=== PATIENT | female | born 1960 | race African-American/Black ===

== ENCOUNTER 2019-04-19 22:22 | Inpatient (IN) | payer BC ==
[~2019-04-19] VITALS: Ht 157.5 cm; Wt 99.6 kg
[2019-04-19 22:26] VITALS: BP 184/99
[2019-04-19 23:35] LABS: ABSOLUTE NEUTROPHILS 5.5 thou/uL (1.4-8.2); BASOPHILS 1.1 % (0.0-2.0); EOSINOPHILS 0.6 % (0.0-3.0); HEMATOCRIT 36.8 % (37.0-47.0); HEMOGLOBIN 11.6 gm/dL (12.0-15.0); LYMPHOCYTES 31.7 % (24.0-44.0); MCHC 31.7 g/dL (28.0-37.0); MCV 82.1 fL (80.0-100.0); MONOCYTES 7.6 % (1.0-8.0); PLATELET COUNT 218 thou/uL (150-400); RBC 4.48 mil/uL (4.20-5.00); RDW 13.2 % (10.5-14.5); WBC 9.3 thou/uL (4.0-11.0)
[2019-04-19 23:45] LABS: ANION GAP 9 mmol/L (7-16); BUN 16 mg/dL (7-18); CALCIUM 8.8 mg/dL (8.5-10.1); CHLORIDE 105 mmol/L (98-107); CO2 27 mmol/L (21-32); CREATININE 0.8 mg/dL (0.6-1.0); GLUCOSE 186 mg/dL (74-106); SODIUM 141 mmol/L (136-145)
[2019-04-19 23:55] LABS: ALBUMIN 3.4 g/dL (3.4-5.0); SGOT 19 U/L (15-37); SGPT 25 U/L (30-65); TOTAL BILIRUBIN 0.2 mg/dL (<0.1-1.0); TOTAL PROTEIN 6.8 g/dL (6.4-8.2); TROPONIN-I <0.06 ng/mL (<0.06)
[2019-04-20 01:33] VITALS: BP 163/76
[2019-04-20] MEDS ORDERED: PANTOPRAZOLE SO40 M1 PO (02:26)
[2019-04-20] MEDS ORDERED: ADVIL200 M3 PO (02:27)
[2019-04-20] MEDS ORDERED: MAPAP325 MG PO (02:28)
[2019-04-20] MEDS ORDERED: LISINOPRIL2.5 MG PO (02:29)
[2019-04-20] MEDS ORDERED: GLIMEPIRIDE1 MG PO (02:29)
[2019-04-20] MEDS ORDERED: LIPITOR10 MG PO (02:30)
[2019-04-20] MEDS ORDERED: GLUCOPHAGE PO (02:31)
[2019-04-20 05:42] LABS: CHOLESTEROL 176 mg/dL (<200); HDL CHOLESTEROL 43 mg/dL (>40); LDL CHOLESTEROL 116 mg/dL (<100); TC:HDL 4.1 Ratio (Not establshd); TRIGLYCERIDE 88 mg/dL (<150); VLDL 18 mg/dL (<40)
[2019-04-20 05:44] LABS: SERUM ASSESSMENT Clear
[2019-04-20 07:30] VITALS: BP 155/73
[2019-04-20 16:40] VITALS: BP 159/77
[2019-04-20 20:21] VITALS: BP 164/82
[2019-04-21 03:10] LABS: GLYCOHEMOGLOBIN (HGB A1C) 10.1 % (4.8-5.6)
[2019-04-21 05:27] VITALS: BP 165/80
[2019-04-21 07:15] VITALS: BP 144/76
--- NOTE | 2019-04-21 07:37 | HC ---
[facility] [place] [address] CONSULTATION Name: LAURIE TAVERAS Room #: 200-I ADM IN M.R.#: [id number] Admission: 04/20/19 Attend Phys: Daryl Quiros MD Discharge: Date of : 62 Report #: [id number] THIS REPORT FOR: cc: Jesu Rodrigez K. Steven DO Park, Jin S. MD ~ CC: Jesu Quiros DATE OF SERVICE: 04/20/2019 CARDIOLOGY CONSULTATION INDICATION: Chest pain. HISTORY OF PRESENT ILLNESS: This is a 58-year-old female with a history of diabetes mellitus, hypertension, hyperlipidemia presenting with chest discomfort for the past several days. She described a sharp pain on the left side of her chest, radiating from the left shoulder, left back and down in the left arm. It seems to occur at rest or when she is lying down. It is not related to physical exertion. It resolved within 2 minutes. It is not associated with any shortness of breath or diaphoresis. She reports no alleviating or aggravating factors. She does report being under a lot of stress lately. There is no history of fever, PND or orthopnea. PAST MEDICAL HISTORY: Diabetes mellitus, hypertension, hypercholesterolemia. ALLERGIES: None. MEDICATIONS: At home include Protonix once a day, lisinopril 2.5, glimepiride, atorvastatin 10 mg and Glucophage 500 mg daily. SOCIAL HISTORY: Denies tobacco use. FAMILY HISTORY: Positive for CAD. REVIEW OF SYSTEMS: A full 10-point review of systems performed. Only the pertinent positives and negatives are described in the HPI. PHYSICAL EXAMINATION: VITAL SIGNS: Blood pressure is 150/60, heart rate is 70 beats per minute. GENERAL APPEARANCE: A mildly overweight female, in no acute distress. HEENT: Normocephalic, atraumatic, oral mucosa moist. NECK: Supple. LUNGS: Clear to auscultation. CARDIAC: Regular rate and rhythm, S1, S2 positive. [facility] [address] [place] [address] CONSULTATION Name: SHANKAR TAVERASNDA Room #: 200-I ADM IN .R.#: [id number] Admission: 04/20/19 Attend Phys: Daryl Quiros MD Discharge: Date of : 62 Report #: [id number] ABDOMEN: Soft, nontender. EXTREMITIES: No cyanosis, no edema. NEUROLOGIC: Alert and oriented. ECG reveals sinus rhythm, otherwise within normal limits. LABORATORY VALUES: Troponin is negative x 3. White count is 9.3, hemoglobin 11.6, creatinine is 0.8. ASSESSMENT AND PLAN: 1. Chest pain syndrome, her symptoms may be suggestive of a neuropathy. It has no correlation with exertion. However, she does have significant risk factors and the plan is to proceed with noninvasive stress testing. 2. Hypertension, elevated blood pressure, increase the dose of lisinopril. 3. Diabetes mellitus, continue with her regimen. 4. Hypercholesterolemia, continue with statin therapy. <ELECTRONICALLY SIGNED> By: Geoffrey Alarcon MD 04/21/19 0737 1035 1049 Geoffrey Alarcon MD /nt
[2019-04-21 11:05] VITALS: BP 155/68
[2019-04-21 15:20] VITALS: BP 145/78
[2019-04-21 17:07] LABS: HEMOGLOBIN 12.5 gm/dL (12.0-15.0); MCH 25.9 pg (26.0-34.0); RBC 4.82 mil/uL (4.20-5.00); RDW 13.2 % (10.5-14.5)
[2019-04-21 17:18] LABS: PROTIME 10.1 Seconds (9.3-11.4)
[2019-04-21 20:20] VITALS: BP 153/89
[2019-04-22 00:36] VITALS: BP 138/67
[2019-04-22 05:20] LABS: HEMATOCRIT 39.4 % (37.0-47.0); HEMOGLOBIN 12.2 gm/dL (12.0-15.0); MCH 25.6 pg (26.0-34.0); MCV 82.5 fL (80.0-100.0); RBC 4.78 mil/uL (4.20-5.00); RDW 13.3 % (10.5-14.5); WBC 9.6 thou/uL (4.0-11.0)
[2019-04-22 05:21] VITALS: BP 155/86
[2019-04-22 05:29] LABS: CALCIUM 9.3 mg/dL (8.5-10.1); CREATININE 0.8 mg/dL (0.6-1.0); POTASSIUM 4.1 mmol/L (3.5-5.1)
[2019-04-22 07:30] VITALS: BP 144/82
[2019-04-22 11:48] VITALS: BP 142/69
--- NOTE | 2019-04-22 17:38 | CATHLAB ---
[facility] Renate [place] [address] INVASIVE PROCEDURE REPORT Name: LAURIE TAVERAS Room #: 209-P ADM IN M.R.#: [id number] Admission: 04/20/19 Attend Phys: Joseyeison Iftikhar Floyd Discharge: Date of : 62 Report #: [id number] THIS REPORT FOR: cc: Jesu Rodrigez K. Steven DO Park, Jin S. MD ~ APPROVED REPORT Study performed: 04/22/2019 10:11:56 Patient Details Patient Status: In-Patient Room #: The patient is a 58 year-old female Event Personnel Geoffrey Alarcon Door Patcher, Wilver Brandt RN, Karen Diaz RTR Damon Toure Sherra RTKyung Monitor Procedures Performed Art Access - R femoral artery* Left Heart Cath w/or w/o Coronaries 3824519 [facility] 54031 Initial Mod Sed Same Phys/QHP Gr 521294 91365 Mod Sed Same Phys/QHP Ea 167719 Hemostasis with Manual pressure Indication Non-STEMI , Dyspnea, Positive stress test, Chest pain Risk Factors Hypercholesterolemia, Hypertension, Diabetes Procedure Narrative The Right Groin^ was infiltrated with 1% Lidocaine subcutaneous anesthesia. A PINNACLE 4FR Sheath #[id number] sheath was inserted into the RFA^. Coronary angiography was performed using coronary diagnostic catheters. The right coronary system was accessed and visualized with a JR4 catheter. The left coronary system was accessed and visualized with a JL4 catheter. The left ventricle was accessed and visualized with a PIGTAIL catheter. Left ventriculogram was performed in 30 degree projection. Hemostasis was obtained with manual pressure following sheath removal without any complications. The patient tolerated the procedure well and there were no complications associated with the procedure. There was no hematoma. [facility] [address] [place] [address] INVASIVE PROCEDURE REPORT Name: LAURIE TAVERAS Room #: 209-P [facility] IN ..#: [id number] Admission: 04/20/19 Attend Phys: Orion Baltazar Discharge: Date of : 62 Report #: [id number] Intraoperative Conscious Sedation Sedation start time: 1039 Case end Time: 1117 Fentanyl 50 mcg Versed 1.5 mg Fluoro Time: 4.00 minutes Dose: DAP 6353.00 cGycm2 1692 mGy Contrast Type and Amount: Omnipaque 110 ml Coronary Angiography The patient's coronary anatomy is right dominant. Diagnostic Cath Left Main The left main artery is a patent vessel, with no flow-limiting lesions. LAD There is a severe stenosis at the ostium, 70%. The remaining segments of the mid and distal LAD are patent with no flow-limiting lesions. Diagonal 1 There is a severe occlusion in the proximal segment, 70%. Circumflex There is a severe occlusion in the mid segment of the left circumflex artery with JHOANA 2 blood flow. OM1 This has a high takeoff from the left circumflex artery, patent with no flow-limiting lesions. OM2 This is a patent vessel, with no flow-limiting lesions. Right Coronary The RCA is a dominant vessel, with no flow-limiting lesions. R PDA This is a small to moderate size caliber vessel with a total occlusion in the proximal segment. RPLV This is a small-caliber vessel, patent with no flow-limiting lesions. Left Ventriculography The left ventricle is normal in size with normal contractility. The left ventricular ejection fraction is estimated to be 60%. There is focal hypokinesis of the mid inferior wall. Hemodynamics The aortic pressure is 146/85 mmHg with a mean of 114 mmHg. The left ventricular pressure is 173/7 mmHg with a mean of mmHg. The left ventricular end diastolic pressure is 12 mmHg. There was no gradient across the aortic valve upon pullback. Pullback from the left ventricle to the aorta revealed no gradient across the aortic valve. Conclusion [facility] [address] [place] [address] INVASIVE PROCEDURE REPORT Name: LAURIE TAVERAS Room #: 209-P [facility] IN M.R.#: [id number] Admission: 04/20/19 Attend Phys: Orion Baltazar Discharge: Date of : 62 Report #: [id number] 1. Severe multivessel disease. 2. Normal LV systolic function with focal hypokinesis of the mid inferior wall. 3. Recommend CV surgical consultation. <ELECTRONICALLY SIGNED> By: Geoffrey Alarcon MD 04/22/19 173 36 36 Geoffrey Alarcon MD /INF
--- NOTE | 2019-04-22 17:41 | CATHLAB ---
[facility] [place] [address] INVASIVE PROCEDURE REPORT Name: LAURIE TAVERAS Room #: 209-P ADM IN M.R.#: [id number] Admission: 04/20/19 Attend Phys: Orion Buitrago Yola Discharge: Date of : 62 Report #: [id number] THIS REPORT FOR: cc: Jesu Rodrigez K. Steven DO Park, Jin S. MD ~ APPROVED REPORT Study performed: 04/22/2019 12:36:31 Patient Details The patient is a 58 year-old female Event Personnel Geoffrey Alarcon Automation Analyst, Wilver Brandt RN, Emeli Jose RTKyung Monitor, Jesse Villarreal Monitor Procedures Performed Art Access - L femoral artery* BRITTANY Place w/wo Plasty Single CIRC 378720 35600 Initial Mod Sed Same Phys/QHP Gr5y 950084 11156 Mod Sed Same Phys/QHP Ea 547926 Hemostasis w/ Mynx Indication Unstable angina , Chest pain, After undergoing a diagnostic cardiac catheterization, the patient was resting in the CCU. The initial plan was to undergo consultation for CABG. The patient developed acute onset of severe, crushing substernal chest discomfort. The patient was taken back to the cardiac catheterization lab, found to have an acute infarct with total occlusion of the mid left circumflex artery stenosis. Risk Factors Hypercholesterolemia, Hypertension, Diabetes Procedure Narrative The Left Groin^ was infiltrated with 1% Lidocaine subcutaneous anesthesia. A PINNACLE 6FR Sheath #[id number] sheath was inserted into the LFA^. Coronary angiography was performed using coronary diagnostic catheters. Pre-demployment femoral angiogram was performed . Closure device was deployed with a 6 Fr MYNXGRIP 6/7F #[id number]. The patient tolerated the procedure well and there were no complications associated with the procedure. There was no hematoma. Intraoperative Conscious Sedation [address] [address] INVASIVE PROCEDURE REPORT Name: NITINLAURIE Room #: 209-P [facility] IN M.R.#: [id number] Admission: 04/20/19 Attend Phys: Orion Baltazar Discharge: Date of : 62 Report #: [id number] Sedation start time: 1242 Case end Time: 1309 Fentanyl 50 mcg Versed 1 mg Fluoro Time: 7.00 minutes Dose: DAP 6340.00 cGycm2 1662 mGy Contrast Type and Amount: Omnipaque 120 ml Hemodynamics The aortic pressure is 155/77 mmHg with a mean of 111 mmHg. PCI Technique Lesion Percutaneous coronary intervention was performed on the mid circumflex artery segment. The lesion stenosis prior to intervention was 100% with JHOANA 0 flow. A VISTA 6FR XB 3.5 #[id number] Guide Catheter was used to engage the ostium. A Luge Wire .014 x 182CM #[id number] Interventional Guidewire was used to cross the lesion. BALLOON DILATION A Balloon catheter Euphora RX 2.25 x 10 #[id number] was inserted and inflated up to 6.00atm for 12seconds. Additional Inflation: 10.00atm for 17seconds. Additional Inflation: 6.00atm for 4seconds. ADDITIONAL DEFLATIONS 8 SONIA/9 SECS and 8 SONIA/7 SECS STENT DEPLOYMENT A drug-eluting stent RESOLUTE TRICIA RX 2.5 X 18 #[id number] was inserted and inflated up to 16.00atm for 18seconds. POST STENT DEPLOYMENT BALLOON DILATION A Balloon catheter TREK NC RX 2.75 X 12 #[id number] was inserted and inflated up to 20.00atm for 21seconds. Additional Inflation: 20.00atm for 16seconds. Final angiography reveals 5 % stenosis with JHOANA 3 flow. Conclusion 1. 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 2. Successful PCI with placement of a drug-eluting stent and latter-day of JHOANA-[address] [address] INVASIVE PROCEDURE REPORT Name: LAURIE TAVERAS Room #: 209-P [facility] IN ..#: [id number] Admission: 04/20/19 Attend Phys: Orion Baltazar Discharge: Date of : 62 Report #: [id number] 3. Recommend aggressive risk factor management and dual antiplatelet therapy. <ELECTRONICALLY SIGNED> By: Geoffrey Alarcon MD 04/22/19 174 39 39 Geoffrey Alarcon MD /INF
[2019-04-22 20:14] VITALS: BP 169/78
[2019-04-22 20:59] VITALS: BP 169/78
[2019-04-23 00:16] VITALS: BP 139/73
[2019-04-23 04:50] VITALS: BP 121/46
[2019-04-23 05:22] LABS: HEMATOCRIT 41.3 % (37.0-47.0); HEMOGLOBIN 12.8 gm/dL (12.0-15.0); RBC 4.92 mil/uL (4.20-5.00); RDW 13.8 % (10.5-14.5); WBC 9.8 thou/uL (4.0-11.0)
[2019-04-23 05:53] VITALS: BP 121/46
[2019-04-23 06:06] LABS: ALBUMIN 3.3 g/dL (3.4-5.0); CALCIUM 8.9 mg/dL (8.5-10.1); CREATININE 0.9 mg/dL (0.6-1.0); TOTAL BILIRUBIN 0.5 mg/dL (<0.1-1.0); TOTAL PROTEIN 7.3 g/dL (6.4-8.2)
[2019-04-23 06:41] LABS: TROPONIN-I 0.74 ng/mL (<0.06)
[2019-04-23 07:40] VITALS: BP 128/64
--- NOTE | 2019-04-23 08:04 | EKG ---
[facility] [place] [address] ELECTROCARDIOGRAM REPORT Name: LAURIE TAVERAS Room #: 209-P ADM IN M.R.#: [id number] Admission: 04/20/19 Attend Phys: Orion Barrientos Discharge: Date of : 62 Report #: [id number] THIS REPORT FOR: cc: Jesu Rodrigez K. Steven DO Lundgren, Craig H. MD [facility] ~ THIS REPORT FOR: //name// [facility] Test Date: 2019-04-22 Test Time: 12:28:32 Pat Name: LAURIE TAVERAS Department: Room: 209 Gender: F Accounting Systems Manager: Thierry CORONADO : 1960 Requested By: Geoffrey Alarcon Order Number: [id number] MD: Nacho uLong Measurements Intervals [place] Rate: 83 P: 48 NE: 143 QRS: 0 QRSD: 90 T: 46 QT: 384 QTc: 452 Interpretive Statements Sinus rhythm Normal tracing Baseline wander in lead(s) II Compared to ECG 04/20/2019 07:04:08 No significant changes Electronically Signed On 04-23-2019 8:03:39 GROUND SERVICES INSTRUCTOR by Nacho Luong [email or web address] <ELECTRONICALLY SIGNED> By: Nacho Luong MD, [facility] 04/23/19 0803 1228 1228 Nacho Luong MD, [facility] /EPI
--- NOTE | 2019-04-23 08:08 | EKG ---
[facility] Renate Mcke[address] [employer] [address] ELECTROCARDIOGRAM REPORT Name: LAURIE TAVERAS Room #: 209-P ADM IN M.R.#: [id number] Admission: 04/20/19 Attend Phys: Orion Barrientos Discharge: Date of : 62 Report #: [id number] THIS REPORT FOR: cc: Jesu Rodrigez K. Steven DO Lundgren, Craig H. MD [facility] ~ THIS REPORT FOR: //name// [facility] Test Date: 2019-04-22 Test Time: 14:41:45 Pat Name: LAURIE TAVERAS Department: Room: 209 P Gender: F Energy Efficiency Finance Manager: Thierry COROANDO : 1960 Requested By: Geoffrey Alarcon Order Number: [id number] MD: Nacho Luong Measurements Intervals [place] Rate: 94 P: 33 [place]: 144 QRS: 8 QRSD: 80 T: 36 QT: 319 QTc: 399 Interpretive Statements Sinus rhythm Borderline T wave abnormalities Compared to ECG 04/20/2019 07:04:08 T-wave abnormality now present Electronically Signed On 04-23-2019 8:07:40 PATIENT REGISTRATION CLERK by Nacho Luong [email or web address] <ELECTRONICALLY SIGNED> By: Nacho Luong MD, [facility] 04/23/19 0807 1441 1441 aNcho Luong MD, [facility] /EPI
--- NOTE | 2019-04-23 08:12 | EKG ---
[facility] [place] [address] ELECTROCARDIOGRAM REPORT Name: LAURIE TAVERAS Room #: 209-P ADM IN M.R.#: [id number] Admission: 04/20/19 Attend Phys: Orion Barrientos Discharge: Date of : 62 Report #: [id number] THIS REPORT FOR: cc: Jesu Rodrigez K. Steven DO Lundgren, Craig H. MD [facility] ~ THIS REPORT FOR: //name// [facility] Test Date: 2019-04-22 Test Time: 16:25:02 Pat Name: LAURIE TAVERAS Department: Room: 209 P Gender: F Cable Installation Manager: Thierry CORONADO : 1960 Requested By: Geoffrey Alarcon Order Number: [id number] MD: Nacho Luong Measurements Intervals [place] Rate: 70 P: 38 [place]: 146 QRS: 0 QRSD: 96 T: 12 QT: 407 QTc: 440 Interpretive Statements Sinus rhythm Nonspecific T wave abnormality Compared to ECG 04/20/2019 07:04:08 No significant change was found Electronically Signed On 04-23-2019 8:11:40 HOME COORDINATOR by Nacho Luong [email or web address] <ELECTRONICALLY SIGNED> By: Nacho Luong MD, [facility] 04/23/19 0811 1625 1625 Nacho Luong MD, [facility] /EPI
--- NOTE | 2019-04-23 08:24 | EKG ---
[facility] [place] [address] ELECTROCARDIOGRAM REPORT Name: LAURIE TAVERAS Room #: 209-P ADM IN M.R.#: [id number] Admission: 04/20/19 Attend Phys: Orion Barrientos Discharge: Date of : 62 Report #: [id number] THIS REPORT FOR: cc: Jesu Rodrigez K. Steven DO Lundgren, Craig H. MD [facility] ~ THIS REPORT FOR: //name// [facility] Test Date: 2019-04-23 Test Time: 07:07:20 Pat Name: LAURIE TAVERAS Department: Room: 209 P Gender: F Forester Aide: Sid SMALLS : 1960 Requested By: Geoffrey Alarcon Order Number: [id number] MD: Nacho Luong Measurements Intervals [place] Rate: 77 P: 52 MD: 137 QRS: -13 QRSD: 91 T: 50 QT: 395 QTc: 448 Interpretive Statements Sinus rhythm Early R-wave progression Compared to ECG 04/20/2019 07:04:08 Early R-wave progression is now present Electronically Signed On 04-23-2019 8:23:01 INDUSTRIAL TECHNOLOGY EDUCATION TEACHER by Nacho Luong [email or web address] <ELECTRONICALLY SIGNED> By: Nacho Luong MD, [facility] 04/23/19 0823 6 6 Nacho Luong MD, [facility] /EPI
[2019-04-23] MEDS ORDERED: EFFIENT10 MG PO (08:36)
[2019-04-23] MEDS ORDERED: METOPROLOL SUCC50 MG PO (08:37)
[2019-04-23] MEDS ORDERED: ASPIR 8181 MG PO (08:37)
[2019-04-23] MEDS ORDERED: LIPITOR40 MG PO (08:37)
[2019-04-23] MEDS ORDERED: COZAAR 50 MG TA50 M1 PO (08:37)
[2019-04-23 11:03] VITALS: BP 128/64
[2019-04-23 11:42] VITALS: BP 128/64
--- NOTE | 2019-04-25 15:34 | EKG ---
[facility] [place] [address] ELECTROCARDIOGRAM REPORT Name: LAURIE TAVERAS Room #: 209-P [facility] IN M.R.#: [id number] Admission: 04/20/19 Attend Phys: Orion Barrientos Discharge: 04/23/19 Date of : 62 Report #: [id number] THIS REPORT FOR: cc: Jesu Rodrigez K. Steven DO Couchonnal, Luis F. MD ~ THIS REPORT FOR: //name// [facility] Test Date: 2019-04-20 Test Time: 07:04:08 Pat Name: LAURIE TAVERAS Department: Room: 200 Gender: F Briar Wood Sorter: GERARD : 1960 Requested By: Mary Mills Order Number: [id number] MD: Alfred Luna Measurements Intervals [place] Rate: 66 P: 39 [place]: 146 QRS: -8 QRSD: 91 T: 16 QT: 424 QTc: 445 Interpretive Statements Sinus rhythm Probable left atrial enlargement Low voltage, precordial leads Compared to ECG 04/19/2019 22:45:35 No significant changes Electronically Signed On 04-20-2019 13:14:32 TELE MARKETING EXECUTIVE by Alfred Luna [email or web address] <ELECTRONICALLY SIGNED> By: Alfred Luna MD 04/20/19 1314 0704 0704 Alfred Luna MD /EPI
--- NOTE | 2019-04-25 15:34 | EKG ---
[facility] [place] [address] ELECTROCARDIOGRAM REPORT Name: LAURIE TAVERAS Room #: 209-P [facility] IN M.R.#: [id number] Admission: 04/20/19 Attend Phys: Orion Buitrago Yola Discharge: 04/23/19 Date of : 62 Report #: [id number] THIS REPORT FOR: cc: Jesu Rodrigez K. Steven DO Park, Jin S. MD ~ THIS REPORT FOR: //name// [facility] ED Test Date: 2019-04-19 Test Time: 22:45:35 Pat Name: LAURIE TAVERAS Department: Room: 200 Gender: F Airplane Pilot Helper: JOHN : 1960 Requested By: Niya Ford Order Number: [id number] MD: Geoffrey Alarcon Measurements Intervals [place] Rate: 75 P: 41 [place]: 142 QRS: 8 QRSD: 91 T: 33 QT: 402 QTc: 449 Interpretive Statements Sinus rhythm Probable left atrial enlargement Low voltage, precordial leads RSR' in V1 or V2, probably normal variant No previous ECG available for comparison Electronically Signed On 04-20-2019 10:09:39 MAINTENANCE PAINTER by Geoffrey Alarcon [email or web address] <ELECTRONICALLY SIGNED> By: Geoffrey Alarcon MD 04/20/19 1009 2245 2245 Geoffrey Alarcon MD /EPI
== END 2019-04-23 11:54 | disposition home or self-care (01) | DRG 247 ==
LOC: ER 22:22 → EROBS 04-20 00:36 → 2N 04-20 00:36
PROVIDERS: Emergency Medicine Emergency Medical Services; Internal Medicine Cardiovascular Disease; Nurse Practitioner; Nurse Practitioner Family; ADMIT Hospitalist
PROC: B2111ZZ Fluoroscopy of Multiple Coronary Arteries using Low Osmolar Contrast (ICD-10-PCS; principal; 2019-04-22)
PROC: B2151ZZ Fluoroscopy of Left Heart using Low Osmolar Contrast (ICD-10-PCS; principal; 2019-04-22)
PROC: 4A023N7 Measurement of Cardiac Sampling and Pressure, Left Heart, Percutaneous Approach (ICD-10-PCS; principal; 2019-04-22)
PROC: 027034Z Dilation of Coronary Artery, One Artery with Drug-eluting Intraluminal Device, Percutaneous Approach (ICD-10-PCS; principal; 2019-04-22)
PROC: B41F1ZZ Fluoroscopy of Right Lower Extremity Arteries using Low Osmolar Contrast (ICD-10-PCS; principal; 2019-04-22)
DX: I21.9 Acute myocardial infarction, unspecified (principal); E11.9 Type 2 diabetes mellitus without complications; I24.9 Acute ischemic heart disease, unspecified; I10 Essential (primary) hypertension; E78.5 Hyperlipidemia, unspecified; E78.00 Pure hypercholesterolemia, unspecified; R07.89 Other chest pain; I25.10 Atherosclerotic heart disease of native coronary artery without angina pectoris; Z79.899 Other long term (current) drug therapy; Z79.1 Long term (current) use of non-steroidal anti-inflammatories (NSAID); Z79.84 Long term (current) use of oral hypoglycemic drugs; Z82.49 Family history of ischemic heart disease and other diseases of the circulatory system; Z83.3 Family history of diabetes mellitus
CPT/HCPCS: 10081

== ENCOUNTER → 2019-05-19 | Outpatient (CLI) | payer BC ==
[~2019-05-19] MED LIST: ADVIL200 M3 PO; ASPIR 8181 MG PO; COZAAR 50 MG TA50 M1 PO; DILTIAZEM 24HR180 M1 PO; EFFIENT10 MG PO; GLIMEPIRIDE1 MG PO; GLUCOPHAGE PO; IMDUR 30 MG TAB30 M1 PO; LIPITOR 40 MG T40 M1 PO; LIPITOR10 MG PO; LIPITOR40 MG PO; LISINOPRIL2.5 MG PO; LOSARTAN POTASS50 MG PO; MAPAP325 MG PO; METOPROLOL SUCC50 MG PO; PANTOPRAZOLE SO40 M1 PO; PLAVIX 75 MG TA75 MG PO; PRASUGREL HCL10 MG PO; TOPROL XL50 MG PO
== END ==
LOC: SJCVCIMAG 11:17
DX: I10 Essential (primary) hypertension (principal); I25.10 Atherosclerotic heart disease of native coronary artery without angina pectoris; E78.5 Hyperlipidemia, unspecified; Z95.5 Presence of coronary angioplasty implant and graft

== ENCOUNTER 2019-05-20 19:23 | Inpatient (IN) | payer BC ==
[~2019-05-20] VITALS: Ht 157.5 cm; Wt 99.5 kg
[~2019-05-20 19:23] MED LIST changes: -DILTIAZEM 24HR180 M1 PO; -IMDUR 30 MG TAB30 M1 PO; -LIPITOR 40 MG T40 M1 PO; -LOSARTAN POTASS50 MG PO; -PLAVIX 75 MG TA75 MG PO; -PRASUGREL HCL10 MG PO; -TOPROL XL50 MG PO
[2019-05-20 19:30] VITALS: BP 173/81
[2019-05-20] MEDS ORDERED: IMDUR 30 MG TAB30 M1 PO (20:00)
[2019-05-20] MEDS ORDERED: DILTIAZEM 24HR180 M1 PO (20:00)
[2019-05-20] MEDS ORDERED: PLAVIX 75 MG TA75 MG PO (20:00)
[2019-05-20] MEDS ORDERED: TOPROL XL50 MG PO (20:00)
[2019-05-20] MEDS ORDERED: PRASUGREL HCL10 MG PO (20:01)
[2019-05-20] MEDS ORDERED: LIPITOR 40 MG T40 M1 PO (20:01)
[2019-05-20] MEDS ORDERED: LOSARTAN POTASS50 MG PO (20:01)
[2019-05-20 20:08] LABS: ANION GAP 9 mmol/L (7-16); BUN 13 mg/dL (7-18); CALCIUM 9.3 mg/dL (8.5-10.1); CHLORIDE 101 mmol/L (98-107); CO2 27 mmol/L (21-32); CREATININE 0.9 mg/dL (0.6-1.0); GLUCOSE 166 mg/dL (74-106); POTASSIUM 4.4 mmol/L (3.5-5.1); SODIUM 137 mmol/L (136-145)
[2019-05-20 20:19] LABS: ALBUMIN 3.9 g/dL (3.4-5.0); MAGNESIUM 1.8 mg/dL (1.8-2.4); SGOT 22 U/L (15-37); SGPT 34 U/L (30-65); TOTAL BILIRUBIN 0.2 mg/dL (<0.1-1.0); TOTAL PROTEIN 7.1 g/dL (6.4-8.2); TROPONIN-I <0.06 ng/mL (<0.06)
[2019-05-20 20:29] LABS: ABSOLUTE NEUTROPHILS 4.8 thou/uL (1.4-8.2); EOSINOPHILS 0.8 % (0.0-3.0); HEMATOCRIT 34.2 % (37.0-47.0); HEMOGLOBIN 11.1 gm/dL (12.0-15.0); LYMPHOCYTES 33.1 % (24.0-44.0); MCH 26.7 pg (26.0-34.0); MCHC 32.4 g/dL (28.0-37.0); MCV 82.4 fL (80.0-100.0); MONOCYTES 7.1 % (1.0-8.0); PLATELET COUNT 201 thou/uL (150-400); RBC 4.15 mil/uL (4.20-5.00); RDW 13.4 % (10.5-14.5); WBC 8.4 thou/uL (4.0-11.0)
[2019-05-20 21:52] VITALS: BP 111/56
[2019-05-20 22:52] VITALS: BP 145/65
[2019-05-21] VITALS (19 sets, daily range): BP systolic 124–147; BP diastolic 59–86
[2019-05-21 02:25] LABS: CALCIUM 8.2 mg/dL (8.5-10.1); CREATININE 0.9 mg/dL (0.6-1.0); POTASSIUM 3.9 mmol/L (3.5-5.1)
--- NOTE | 2019-05-21 05:21 | NUR ---
PT ARRIVED ON UNIT AROUND 2214. PT IS AOX4 WITH C/O INTERMITTANT CHEST PAINS. PT NPO AT MIDNIGHT PER ORDERS. PT DENIES SOA OR N/V/D. PT ASSESSMENT CHARTED AND CONSENTS SIGNED. ADVISED PT TO INFORM OF ANY CHEST PAINS THRU NIGHT. PT HAD NO C/O OF CHEST PAINS THRU NIGHT. PT RESTED WITH MINIMAL INTERRUPTIONS. WILL CONTINUE TO MONITOR PT.
--- NOTE | 2019-05-21 08:10 | EKG ---
[facility] [place] [address] ELECTROCARDIOGRAM REPORT Name: LAURIE TAVERAS Room #: 219-P ADM IN M.R.#: [id number] Admission: 05/20/19 Attend Phys: Christian Gamble MD Discharge: Date of : 62 Report #: [id number] THIS REPORT FOR: cc: Jesu Rodrigez K. Steven DO Lundgren, Craig H. MD [facility] ~ THIS REPORT FOR: //name// [facility] ED Test Date: 2019-05-20 Test Time: 19:26:03 Pat Name: LAURIE TAVERAS Department: Room: 219 Gender: F Patient Registration Representative: BETO : 1960 Requested By: Chas King Order Number: [id number] MD: Nacho Luong Measurements Intervals [place] Rate: 79 P: 45 [place]: 139 QRS: 1 QRSD: 100 T: 6 QT: 382 QTc: 438 Interpretive Statements Sinus rhythm Normal tracing Compared to ECG 04/23/2019 07:07:20 No significant changes Electronically Signed On 05-21-2019 8:09:02 CDT by Nacho Luong [email or web address] <ELECTRONICALLY SIGNED> By: Nacho Luong MD, [facility] 05/21/19 0809 25 25 Nacho Luong MD, [facility] /EPI
--- NOTE | 2019-05-21 08:14 | EKG ---
[facility] [place] [address] ELECTROCARDIOGRAM REPORT Name: LAURIE TAVERAS Room #: 219-P ADM IN M.R.#: [id number] Admission: 05/20/19 Attend Phys: Christian Gamble MD Discharge: Date of : 62 Report #: [id number] THIS REPORT FOR: cc: Jesu Rodrigez K. Steven DO Lundgren, Craig H. MD [facility] ~ THIS REPORT FOR: //name// [facility] Test Date: 2019-05-21 Test Time: 07:01:59 Pat Name: LAURIE TAVERAS Department: Room: 219 P Gender: F City Maintenance Manager: Sid SMALLS : 1960 Requested By: Mary Mills Order Number: [id number] MD: Nacho Luong Measurements Intervals [place] Rate: 82 P: 57 MD: 145 QRS: 6 QRSD: 90 T: 24 QT: 385 QTc: 450 Interpretive Statements Sinus rhythm Borderline T wave abnormalities Compared to ECG 04/23/2019 07:07:20 No significant change was found Electronically Signed On 05-21-2019 8:13:26 CDT by Nacho Luong [email or web address] <ELECTRONICALLY SIGNED> By: Nacho Luong MD, [facility] 05/21/19 0813 0 0 Nacho Luong MD, [facility] /EPI
--- NOTE | 2019-05-21 14:54 | NUR ---
ASSESSMENT CHARTED. PT ALERT AND ORIENTED. VSS. HAD CARDIAC CATH THIS AM. RIGHT GROIN INCISION C/D/I. NO HEMATOMA NOTED. WILL CONTINUE TO MONITOR.
[2019-05-22 00:39] VITALS: BP 159/72
--- NOTE | 2019-05-22 03:42 | NUR ---
ASSESSMENT DOCUMENTED.PT BEEN RESTING IN NO ACUTE DISTRESS.AOX4.VSS.S/P CARDIAC MELINDA W/INTERVENTIONS TO LAD.RIGHT GROIN WITH CLEAN DRY DRESSING INTACT,NO HEMATOMA.UP AD DAVE IN THE ROOM,GAIT STEADY.PT DENIES ANY NEEDS AT THIS TIME.POSSIBLE DISCHARGE TO HOME TODAY.
[2019-05-22 04:08] VITALS: BP 159/72
[2019-05-22 04:13] VITALS: BP 140/71
[2019-05-22 05:25] LABS: HEMATOCRIT 35.3 % (37.0-47.0); HEMOGLOBIN 11.3 gm/dL (12.0-15.0); MCH 26.3 pg (26.0-34.0); MCHC 31.9 g/dL (28.0-37.0); MCV 82.5 fL (80.0-100.0); RBC 4.27 mil/uL (4.20-5.00); RDW 13.2 % (10.5-14.5); WBC 7.3 thou/uL (4.0-11.0)
[2019-05-22 05:43] LABS: ALBUMIN 3.3 g/dL (3.4-5.0); CALCIUM 8.5 mg/dL (8.5-10.1); CREATININE 0.8 mg/dL (0.6-1.0); POTASSIUM 3.9 mmol/L (3.5-5.1); TOTAL BILIRUBIN 0.4 mg/dL (<0.1-1.0); TOTAL PROTEIN 6.9 g/dL (6.4-8.2)
[2019-05-22 08:05] VITALS: BP 149/70
--- NOTE | 2019-05-22 08:50 | EKG ---
[facility] [place] [address] ELECTROCARDIOGRAM REPORT Name: LAURIE TAVERAS Room #: 219-P ADM IN M.R.#: [id number] Admission: 05/20/19 Attend Phys: Christian Gamble MD Discharge: Date of : 62 Report #: [id number] THIS REPORT FOR: cc: Jesu Rodrigez K. Steven DO Lundgren, Craig H. MD [facility] ~ THIS REPORT FOR: //name// [facility] Test Date: 2019-05-21 Test Time: 13:23:59 Pat Name: LAURIE TAVERAS Department: Room: 219 P Gender: F Rn Medical Surgical: Jayde BROTHERS : 1960 Requested By: Geoffrey Alarcon Order Number: [id number] MD: Nacho Luong Measurements Intervals [place] Rate: 83 P: 48 [place]: 151 QRS: 8 QRSD: 89 T: 3 QT: 368 QTc: 433 Interpretive Statements Sinus rhythm Borderline T abnormalities, inferior leads Compared to ECG 05/21/2019 07:01:59 No significant change was found Electronically Signed On 05-22-2019 8:49:17 CDT by Nacho Luong [email or web address] <ELECTRONICALLY SIGNED> By: Nacho Luong MD, [facility] 05/22/19 0849 1323 1323 Nacho Luong MD, [facility] /EPI
--- NOTE | 2019-05-22 09:03 | EKG ---
[facility] [place] [address] ELECTROCARDIOGRAM REPORT Name: LAURIE TAVERAS Room #: 219-P ADM IN M.R.#: [id number] Admission: 05/20/19 Attend Phys: Christian Gamble MD Discharge: Date of : 62 Report #: [id number] THIS REPORT FOR: cc: Jesu Rodrigez K. Steven DO Lundgren, Craig H. MD [facility] ~ THIS REPORT FOR: //name// [facility] Test Date: 2019-05-22 Test Time: 07:01:39 Pat Name: LAURIE TAVERAS Department: Room: 219 P Gender: F Drywall Stripper: GERARD : 1960 Requested By: Geoffrey Alarcon Order Number: [id number] MD: Nacho Luong Measurements Intervals [place] Rate: 75 P: 41 OK: 150 QRS: -2 QRSD: 84 T: 25 QT: 401 QTc: 448 Interpretive Statements Sinus rhythm No significant abnormality Compared to ECG 05/21/2019 07:01:59 No significant change was found Electronically Signed On 05-22-2019 9:02:31 CDT by Nacho Luong [email or web address] <ELECTRONICALLY SIGNED> By: Nacho Luong MD, [facility] 05/22/19901 0 0 Nacho Luong MD, [facility] /EPI
[2019-05-22 10:02] VITALS: BP 149/70
--- NOTE | 2019-05-22 10:09 | NUR ---
ASSESSMENT CHARTED. PT ALERT AND ORIENTED. VSS. RIGHT GROIN INCISION C/D/I. NO HEMATOMA NOTED. SEEN BY DR. SABILLON AND DR. AKHTAR. ORDERS GIVEN TO DISCHARGE PT TO HOME. DISCHARGE INSTRUCTION GIVEN TO PT. PT VERBERLISED UNDERSTANDING.
--- NOTE | 2019-05-22 10:39 | CATHLAB ---
[facility] [address] [place] [address] INVASIVE PROCEDURE REPORT Name: LAURIE TAVERAS Room #: 219-P DIS IN M.R.#: [id number] Admission: 05/20/19 Attend Phys: Christian Gamble MD Discharge: 05/22/19 Date of : 62 Report #: [id number] THIS REPORT FOR: cc: Jesu Rodrigez K. Steven DO Park, Jin S. MD ~ APPROVED REPORT Study performed: 05/21/2019 09:29:50 Patient Details Patient Status: In-Patient Room #: The patient is a 58 year-old female Event Personnel Geoffrey Alarcon Tire Curer, Sarah Bustamante RN RN, Karen Diaz RTR Scrub, Emeli Jose RTR Monitor, Sunitha Barrow Scrradha Procedures Performed Art Access - R femoral artery* Left Heart Cath w/or w/o Coronaries [id number] [facility] [address] Place w/wo Plasty Single LAD 086549 76517 Initial Mod Sed Same Phys/QHP Gr5y 610116 69838 Mod Sed Same Phys/QHP Ea 212050 Hemostasis w/ Mynx Indication Dyspnea, Unstable angina , Chest pain Risk Factors Hypercholesterolemia, Coronary Artery DiseaseHypertension, Diabetes Previous Procedures/Diagnoses Previous PCI, Previous NE Procedure Narrative The Right Groin^ was infiltrated with 1% Lidocaine subcutaneous anesthesia. A PINNACLE 4FR Sheath #[id number] sheath was inserted into the RFA^. Coronary angiography was performed using coronary diagnostic catheters. The right coronary system was accessed and visualized with a JR4 catheter. The left coronary system was accessed and visualized with a JL4 catheter. The left ventricle was accessed and visualized with a angled pigtail catheter. Left ventricular/Aortic Valve gradient assessed via catheter pullback. Pre-demployment femoral angiogram was performed . Closure device was [facility] [place] [address] INVASIVE PROCEDURE REPORT Name: LAURIE TAVERAS Room #: 219-P [facility] IN M.R.#: [id number] Admission: 05/20/19 Attend Phys: Christian Gamble MD Discharge: 05/22/19 Date of : 62 Report #: [id number] deployed with a 6 Fr MYNXGRIP 6/7F #[id number]. The patient tolerated the procedure well and there were no complications associated with the procedure. There was no hematoma. Intraoperative Conscious Sedation Sedation start time: 09:24 Case end Time: 10:29 Fentanyl 100 mcg Versed 1.5 mg Fluoro Time: 14.80 minutes Dose: DAP 70760.00 cGycm2 4452 mGy Contrast Type and Amount: Omnipaque 270 ml Coronary Angiography The patient's coronary anatomy is right dominant. Diagnostic Cath Left Main The Left main artery is a large-caliber vessel, patent with no flow-limiting lesions. LAD The LAD has a severe ostial stenosis, 70-80%. The remaining segments are patent with no flow-limiting lesions. Diagonal 1 This is a small to moderate size caliber vessel with a severe proximal occlusion, 80%. Recommend medical therapy. Circumflex This is a moderate size caliber vessel, with a patent stent in the mid segment. OM1 This is a moderate size caliber vessel with a high takeoff off the left circumflex artery. This vessel is patent, with no flow-limiting lesions. OM2 This is a moderate size caliber vessel, patent with no flow-limiting lesions. Right Coronary The RCA is a moderate size caliber vessel, patent with no flow-limiting lesions. R PDA This is a small-caliber vessel with a total occlusion proximally. The distal segment appears to be partially filled via collateral circulation. RPLV This is a small-caliber vessel, patent with no flow-limiting lesions. Left Ventriculography Left Ventriculography was not performed. Ejection Fraction was >55% based off patient's Echocardiogram. An LVEDP was measured and there is no gradient across the outflow tract. Hemodynamics The aortic pressure is 156/82 mmHg with a mean of 114 mmHg. The left [facility] [address] [place] [address] INVASIVE PROCEDURE REPORT Name: LAURIE TAVERAS Room #: 219-P DIS IN M.R.#: [id number] Admission: 05/20/19 Attend Phys: Christian Gamble MD Discharge: 05/22/19 Date of : 62 Report #: [id number] ventricular pressure is 149/10 mmHg with a mean of mmHg. The left ventricular end diastolic pressure is 20 mmHg. PCI Technique Lesion Percutaneous coronary intervention was performed on the ostial/proximal left anterior descending artery segment. The lesion stenosis prior to intervention was 80% with JHOANA 3 flow. A VISTA 6FR JL3.5 #[id number] Guide Catheter was used to engage the ostium. A Luge Wire .014 x 182CM #[id number] Interventional Guidewire was used to cross the lesion. BALLOON DILATION A Balloon catheter Euphora RX 2.5 x 12 #[id number] was inserted and inflated up to 10.00atm for 24seconds. STENT DEPLOYMENT A drug-eluting stent RESOLUTE TRICIA RX 3.0 X 15 #[id number] was inserted and inflated up to 12.00atm for 21seconds. POST STENT DEPLOYMENT BALLOON DILATION A Balloon catheter TREK NC RX 3.0 X 12 #[id number] was inserted and inflated up to 18.00atm for 12seconds. Additional Inflation: 18.00atm for 10seconds. Final angiography reveals 0 % stenosis with JHOANA 3 flow. Conclusion 1. Successful insertion of a drug-eluting stent into the ostial/proximal LAD segment. 2. There is a patent stent in the mid segment of the left circumflex artery. 3. There is a severe occlusion in a small to moderate size first diagonal artery, recommend medical therapy. 4. There is a total occlusion in a small PDA vessel, unchanged compared to prior procedures. 5. Recommend dual antiplatelet therapy and aggressive risk factor management. <ELECTRONICALLY SIGNED> By: Geoffrey Alarcon MD 05/22/19 1038 1038 1038 Geoffrey Alarcon MD /INF
== END 2019-05-22 10:16 | disposition home or self-care (01) | DRG 247 ==
LOC: ER 19:23 → 2N 21:18 → EROBS 21:18 → 2N 22:12
PROVIDERS: Emergency Medicine; Internal Medicine Cardiovascular Disease; Nurse Practitioner Family; ADMIT Hospitalist
PROC: 027034Z Dilation of Coronary Artery, One Artery with Drug-eluting Intraluminal Device, Percutaneous Approach (ICD-10-PCS; principal; 2019-05-21)
PROC: 4A023N7 Measurement of Cardiac Sampling and Pressure, Left Heart, Percutaneous Approach (ICD-10-PCS; principal; 2019-05-21)
PROC: B41F1ZZ Fluoroscopy of Right Lower Extremity Arteries using Low Osmolar Contrast (ICD-10-PCS; principal; 2019-05-21)
PROC: B2111ZZ Fluoroscopy of Multiple Coronary Arteries using Low Osmolar Contrast (ICD-10-PCS; principal; 2019-05-21)
DX: I21.4 Non-ST elevation (NSTEMI) myocardial infarction (principal); I10 Essential (primary) hypertension; E78.5 Hyperlipidemia, unspecified; I25.119 Atherosclerotic heart disease of native coronary artery with unspecified angina pectoris; I25.10 Atherosclerotic heart disease of native coronary artery without angina pectoris; E11.65 Type 2 diabetes mellitus with hyperglycemia; Z79.82 Long term (current) use of aspirin; Z79.899 Other long term (current) drug therapy; Z82.49 Family history of ischemic heart disease and other diseases of the circulatory system; Z83.3 Family history of diabetes mellitus
CPT/HCPCS: 10081

== ENCOUNTER 2019-09-22 09:04 | Inpatient (IN) | payer BC ==
[~2019-09-22] VITALS: Ht 157.5 cm; Wt 103.9 kg
[2019-09-22 09:04] VITALS: BP 174/91
[~2019-09-22 09:04] MED LIST changes: +DILTIAZEM 24HR180 M1 PO; +IMDUR 30 MG TAB30 M1 PO; +LIPITOR 40 MG T40 M1 PO; +LOSARTAN POTASS50 MG PO; +PLAVIX 75 MG TA75 MG PO; +PRASUGREL HCL10 MG PO; +TOPROL XL50 MG PO
[2019-09-22 09:39] LABS: ABSOLUTE NEUTROPHILS 5.4 thou/uL (1.4-8.2); BASOPHILS 0.6 % (0.0-2.0); EOSINOPHILS 0.4 % (0.0-3.0); HEMATOCRIT 39.3 % (37.0-47.0); HEMOGLOBIN 12.8 gm/dL (12.0-15.0); LYMPHOCYTES 31.5 % (24.0-44.0); MCH 26.5 pg (26.0-34.0); MCHC 32.6 g/dL (28.0-37.0); MCV 81.5 fL (80.0-100.0); MONOCYTES 6.3 % (1.0-8.0); PLATELET COUNT 260 thou/uL (150-400); POLYS 61.2 % (36.0-66.0); RBC 4.83 mil/uL (4.20-5.00); RDW 14.1 % (10.5-14.5); WBC 8.8 thou/uL (4.0-11.0)
[2019-09-22 09:43] LABS: ANION GAP 10 mmol/L (7-16); BUN 9 mg/dL (7-18); CALCIUM 9.3 mg/dL (8.5-10.1); CHLORIDE 104 mmol/L (98-107); CO2 26 mmol/L (21-32); CREATININE 0.8 mg/dL (0.6-1.0); GLUCOSE 162 mg/dL (74-106); POTASSIUM 4.2 mmol/L (3.5-5.1); SODIUM 140 mmol/L (136-145)
[2019-09-22 09:51] LABS: TROPONIN-I <0.06 ng/mL (<0.06)
[2019-09-22 10:33] VITALS: BP 174/91
--- NOTE | 2019-09-22 14:26 | EKG ---
[facility] [place] [address] [place] [address] ELECTROCARDIOGRAM REPORT Name: LAURIE TAVERAS Room #: 170-8 ADM IN M.R.#: [id number] Admission: 09/22/19 Attend Phys: Chari Reddy MD Discharge: Date of : 62 Report #: [id number] THIS REPORT FOR: cc: Jesu Rodrigez K. Steven DO Couchonnal, Luis F. 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
[2019-09-22 14:27] LABS: CHOLESTEROL 130 mg/dL (<200); HDL CHOLESTEROL 35 mg/dL (>40); LDL CHOLESTEROL 77 mg/dL (<100); TC:HDL 3.7 Ratio (Not establshd); TRIGLYCERIDE 93 mg/dL (<150); VLDL 19 mg/dL (<40)
--- NOTE | 2019-09-22 14:27 | EKG ---
[facility] [place] [address] ELECTROCARDIOGRAM REPORT Name: LAURIE TAVERAS Room #: 170-8 ADM IN M.R.#: [id number] Admission: 09/22/19 Attend Phys: Chari Reddy MD Discharge: Date of : 62 Report #: [id number] THIS REPORT FOR: cc: Jesu Rodrigez K. Steven DO Couchonnal, Luis F. 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
[2019-09-22 15:09] VITALS: BP 148/72
[2019-09-22 15:43] VITALS: BP 156/76
[2019-09-22 19:03] LABS: ALBUMIN 4.2 g/dL (3.4-5.0); DIRECT BILIRUBIN < 0.1 mg/dL (<0.1-0.2); GGTP 28 U/L (5-55); SGOT 16 U/L (15-37); SGPT 24 U/L (30-65); TOTAL BILIRUBIN 0.2 mg/dL (0.2-1.0)
[2019-09-22 20:11] VITALS: BP 152/71
--- NOTE | 2019-09-22 20:31 | NUR ---
ASSUMMED PT CARE AT APPROXIMATELY 1530. PT A&O X4. ASSESSMENT CHARTED. FALL PRECAUTIONS IN PLACE. PT DENIES HAVING SOB. PT STATED SHE HAD CHEST PAIN. PT DENIED WANTING ANALGESICS. PT VOMITED X1. INFORMED DR. HUTSON. PT RECEIVED ANTI-EMETIC. PT STATED ANTI-EMETIC RELEIVED NAUSEA. ADMISSION COMPLETE. VITAL SIGNS STABLE. BLOOD SUGARS STABLE. PT COMFORTABLE. PT DENIES HAVING FURTHER CONCERNS.
[2019-09-23 00:33] VITALS: BP 142/66
[2019-09-23 04:06] LABS: GLYCOHEMOGLOBIN (HGB A1C) 8.1 % (4.8-5.6)
--- NOTE | 2019-09-23 04:48 | NUR ---
ASSUMED PT CARE AT AROUND 1930, PT IS AWAKE, ALEERT AND ORIENTED, MAKES NEEDS KNOWN, PT IS SR ON THE MONITOR, NO NAUSEA AND VOMITTING, DENIES CHEST PAIN, ASSESSMENTS CHARTED, VSS, NO ISSUES NOTED, WILL CONTINUE TO MONITOR
[2019-09-23 05:43] LABS: ABSOLUTE NEUTROPHILS 5.2 thou/uL (1.4-8.2); BASOPHILS 0.2 % (0.0-2.0); EOSINOPHILS 0.4 % (0.0-3.0); HEMATOCRIT 36.9 % (37.0-47.0); HEMOGLOBIN 11.6 gm/dL (12.0-15.0); MCH 25.9 pg (26.0-34.0); MCHC 31.5 g/dL (28.0-37.0); MCV 82.2 fL (80.0-100.0); MONOCYTES 8.3 % (1.0-8.0); PLATELET COUNT 245 thou/uL (150-400); POLYS 62.1 % (36.0-66.0); RBC 4.49 mil/uL (4.20-5.00); RDW 13.8 % (10.5-14.5); WBC 8.4 thou/uL (4.0-11.0)
[2019-09-23 05:47] VITALS: BP 130/66
[2019-09-23 06:08] LABS: ALBUMIN 3.4 g/dL (3.4-5.0); CALCIUM 8.9 mg/dL (8.5-10.1); CREATININE 0.8 mg/dL (0.6-1.0); MAGNESIUM 1.9 mg/dL (1.8-2.4); PHOSPHORUS 3.4 mg/dL (2.5-4.9); TOTAL BILIRUBIN 0.4 mg/dL (0.2-1.0); TOTAL PROTEIN 7.2 g/dL (6.4-8.2)
[2019-09-23 07:55] VITALS: BP 141/65
[2019-09-23 11:48] VITALS: BP 138/75
[2019-09-23 15:31] VITALS: BP 130/64
--- NOTE | 2019-09-23 16:39 | CATHLAB ---
[facility] [place] [address] INVASIVE PROCEDURE REPORT Name: LAURIE TAVERAS Room #: 214-P ADM IN M.R.#: [id number] Admission: 09/22/19 Attend Phys: Chari Reddy MD Discharge: Date of : 62 Report #: [id number] THIS REPORT FOR: cc: Jesu Rodrigez K. Steven DO Park, Jin S. MD ~ APPROVED REPORT Study performed: 09/23/2019 14:15:44 Patient Details The patient is a 59 year-old female Event Personnel Geoffrey Alarcon Product Safety Engineer, Taylor Dodd RN, Osmar Trejo RN RN, Emeli Jose RTR Scrub, Steven Byers RTR Monitor Procedures Performed Art Access - R femoral artery* Left Heart Cath w/or w/o Coronaries [id number] [facility] 19882 Initial Mod Sed Same Phys/QHP Gr5y 974901 85216 Mod Sed Same Phys/QHP Ea 856004 Hemostasis with Manual pressure Indication Dyspnea, Unstable angina , Chest pain Risk Factors Hypercholesterolemia, Coronary Artery DiseaseHypertension Previous Procedures/Diagnoses Previous PCI Procedure Narrative The Right Groin^ was infiltrated with 1% Lidocaine subcutaneous anesthesia. A PINNACLE 4FR Sheath #[id number] sheath was inserted into the RFA^. Coronary angiography was performed using coronary diagnostic catheters. The right coronary system was accessed and visualized with a JR4 catheter. The left coronary system was accessed and visualized with a JL4 catheter. Hemostasis was obtained with manual pressure following sheath removal without any complications. The patient tolerated the procedure well and there were no complications associated with the procedure. There was no hematoma. [facility] [address] [place] [address] INVASIVE PROCEDURE REPORT Name: LAURIE TAVERAS Room #: 214-P [facility] IN .R.#: [id number] Admission: 09/22/19 Attend Phys: Chari Reddy, Discharge: Date of : 62 Report #: [id number] Intraoperative Conscious Sedation Sedation start time: 1448 Case end Time: 1521 Fentanyl 50 mcg Versed 2 mg Fluoro Time: 3.30 minutes Dose: DAP 5322.00 cGycm2 1445 mGy Contrast Type and Amount: Omnipaque 100 ml Coronary Angiography The patient's coronary anatomy is right dominant. Diagnostic Cath Left Main This is a large-caliber vessel, patent with no flow-limiting lesions. LAD There is a stent in the ostial/proximal segment, widely patent. There is mild disease in the mid and distal segments. Diagonal 1 This is a moderate-sized caliber vessel, patent with no flow-limiting lesions. Circumflex This is a moderate-sized caliber vessel with a patent stent in the midsegment. OM1 This is a moderate-sized caliber vessel, patent with no flow-limiting lesions. OM2 This is a moderate-sized caliber vessel, patent with no flow-limiting lesions. Right Coronary The RCA is a dominant vessel, patent with no flow-limiting lesions. R PDA This is a small caliber vessel with a chronic occlusion. This is unchanged from prior procedures. RPLV This is a small caliber vessel, patent with no flow-limiting lesions. Left Ventriculography Left Ventriculography was not performed. An LVEDP was measured and there is no gradient across the outflow tract. Hemodynamics The aortic pressure is 133/74 mmHg with a mean of 86 mmHg. The left ventricular pressure is 140/9 mmHg with a mean of mmHg. The left ventricular end diastolic pressure is 14 mmHg. Conclusion 1. There are widely patent stents in the ostial/proximal LAD and mid left circumflex segments. 2. Chronic occlusion of a small PDA, unchanged from prior [facility] [address] [place] [address] INVASIVE PROCEDURE REPORT Name: LAURIE TAVERAS Room #: 214-P ADM IN [facility].#: [id number] Admission: 09/22/19 Attend Phys: Chari Reddy, Discharge: Date of : 62 Report #: [id number] procedures. 3. Recommend guideline directed medical therapy. <ELECTRONICALLY SIGNED> By: Geoffrey Alarcon MD 09/23/19 1638 1638 1638 Geoffrey Alarcon MD /BEATA
--- NOTE | 2019-09-23 16:52 | NUR ---
assessment as charted - meds as per apr - no co's of pain or nausea. up ad lacie in room this am. pt npo for cath this afternoon. returned from offset label rewinder at approx 1530 - groin c/d/i. vss, iv fluids infusing as ordered. accuchecks as charted - no coverage required. pt on bedrest till 1814. no co's at the present time.
[2019-09-23 20:15] VITALS: BP 128/65
[2019-09-24 05:36] VITALS: BP 159/62
[2019-09-24 06:01] LABS: HEMATOCRIT 36.3 % (37.0-47.0); HEMOGLOBIN 11.6 gm/dL (12.0-15.0); MCH 26.2 pg (26.0-34.0); MCHC 31.9 g/dL (28.0-37.0); MCV 82.2 fL (80.0-100.0); RBC 4.41 mil/uL (4.20-5.00); RDW 13.5 % (10.5-14.5); WBC 8.3 thou/uL (4.0-11.0)
--- NOTE | 2019-09-24 06:24 | NUR ---
ASSESSMENT: PT ALERT AND ORIENT TIMES FOUR. NPO AT [place] FOR PIPIDA SCAN THIS AM. RIGHT GROIN SITE DRY/INTACT. SR PER MONITOR. DENIES PAIN. GOOD PROGRESS TOWARDS DC GOAL, WILL CONTINUE TO MONITOR.
[2019-09-24 06:27] LABS: CALCIUM 8.6 mg/dL (8.5-10.1); CREATININE 0.9 mg/dL (0.6-1.0); POTASSIUM 4.2 mmol/L (3.5-5.1)
[2019-09-24 08:15] VITALS: BP 143/78
[2019-09-24 11:40] VITALS: BP 151/77
[2019-09-24 19:45] VITALS: BP 156/85
[2019-09-25 04:00] VITALS: BP 138/59
--- NOTE | 2019-09-25 04:51 | NUR ---
ASSUMED CARE OF CARE FROM DAY SHIFT RN, PT UP IN CHAIR, CHEEFUL AND HAVE NO COMPLAINTS , ASSSESSMENT COMPLETED , REFRESH TECHNICIAN SHOWS NSR, PT NPO FOR PIPIDA. PT RESTED WELL THROUGHOUT HOURLY ROUNDS NO CHANGES NOTED T THIS TIME
[2019-09-25 06:00] LABS: HEMATOCRIT 35.4 % (37.0-47.0); HEMOGLOBIN 11.3 gm/dL (12.0-15.0); MCH 25.8 pg (26.0-34.0); MCHC 31.8 g/dL (28.0-37.0); MCV 81.1 fL (80.0-100.0); RBC 4.37 mil/uL (4.20-5.00); RDW 13.4 % (10.5-14.5); WBC 9.5 thou/uL (4.0-11.0)
[2019-09-25 06:46] LABS: ALBUMIN 3.3 g/dL (3.4-5.0); CALCIUM 8.5 mg/dL (8.5-10.1); CREATININE 0.8 mg/dL (0.6-1.0); TOTAL BILIRUBIN 0.3 mg/dL (0.2-1.0)
[2019-09-25 07:30] VITALS: BP 128/67
[2019-09-25] MEDS ORDERED: ASPIRIN325 PO (09:36)
[2019-09-25 11:20] VITALS: BP 120/61
[2019-09-25] MEDS ORDERED: CARAFATE 1 GM TA1 G1 PO (15:58)
[2019-09-25 16:09] VITALS: BP 120/61
--- NOTE | 2019-09-25 18:48 | NUR ---
ASSUMED CARE AT SHIFT CHANGE, ASSESSMENT DOCUMENTED, AND DENIES ANY DISCOMFORT. DISCHARGE AND MEDICATION INSTRUCTIONS GIVEN TO PATIENT, AND PATIENT DISCHARGED.
== END 2019-09-25 18:20 | disposition home or self-care (01) | DRG 287 ==
LOC: ER 09:04 → 2N 10:42 → EROBS 10:42 → 2N 15:20
PROVIDERS: Emergency Medicine; Internal Medicine Cardiovascular Disease; Nurse Practitioner; ADMIT Internal Medicine; ATTEND Internal Medicine
PROC: B2111ZZ Fluoroscopy of Multiple Coronary Arteries using Low Osmolar Contrast (ICD-10-PCS; principal; 2019-09-23)
PROC: 4A023N7 Measurement of Cardiac Sampling and Pressure, Left Heart, Percutaneous Approach (ICD-10-PCS; principal; 2019-09-23)
DX: I25.10 Atherosclerotic heart disease of native coronary artery without angina pectoris (principal); E11.9 Type 2 diabetes mellitus without complications; I10 Essential (primary) hypertension; E78.5 Hyperlipidemia, unspecified; E66.01 Morbid (severe) obesity due to excess calories; Z20.828 Contact with and (suspected) exposure to other viral communicable diseases; K82.8 Other specified diseases of gallbladder; Z95.5 Presence of coronary angioplasty implant and graft; Z83.6 Family history of other diseases of the respiratory system; Z79.82 Long term (current) use of aspirin; Z79.899 Other long term (current) drug therapy; Z83.3 Family history of diabetes mellitus; Z82.49 Family history of ischemic heart disease and other diseases of the circulatory system; Z86.010 Personal history of colon polyps
CPT/HCPCS: 10081

== ENCOUNTER → 2019-11-13 | Outpatient (CLI) | payer BC ==
[~2019-11-13] MED LIST changes: +ASA81BEC PO; +ASPIRIN325 PO; +CARAFATE 1 GM TA1 G1 PO; +CARAFATE 1 GM TA1 GM PO; +DILTIAZEM 24HR360 M1 PO; +DILTIAZEM ER180 MG PO; +ISOSORBIDE DINI30 MG PO; +METFORMIN HCL500 M3 PO; +NORCO 10-325 T1 EACH PO; -PANTOPRAZOLE SO40 M1 PO; +PROTONIX40 M2 PO
== END ==
LOC: LAB 10:26
PROVIDERS: ATTEND Surgery
DX: Z01.812 Encounter for preprocedural laboratory examination (principal); Z20.828 Contact with and (suspected) exposure to other viral communicable diseases

== ENCOUNTER 2019-11-18 08:47 | Day surgery (SDC) | payer BC ==
[~2019-11-18] VITALS: Ht 160 cm; Wt 103.9 kg
[~2019-11-18 08:47] MED LIST changes: -NORCO 10-325 T1 EACH PO
[2019-11-18 09:11] VITALS: BP 183/89
[2019-11-18] MEDS ORDERED: NORCO 10-325 T1 EACH PO (10:38)
[2019-11-18 11:36] VITALS: BP 183/89
--- NOTE | 2019-11-20 15:07 | PATH ---
[facility] [address] [place] [address] PATHOLOGY RPT PROCEDURE Name: LAURIE TAVERAS Room #: DEP [facility] M.R.#: [id number] Admission: 11/18/19 Date of : 62 Discharge: 11/18/19 Report #: [id number] Path Case #: [id number] [facility] Accession Number: [id number] . 01 Material submitted: . gallbladder - GALLBLADDER . 01 Clinical history: . BILIARY DYSKINESIA . 02 Diagnosis: Gallbladder, cholecystectomy: - Mild chronic cholecystitis. (IUV/db; 11/20/2019) LBQ 11/20/2019 1106 Local . 02 Electronically signed: . Marleny Baptiste MD, Pathologist NPI- [id number] . 01 Gross description: . The specimen is received in formalin, labeled "stacie Torres". Received is an intact gallbladder measuring 2.2 x 2.7 x 2.4 cm in greatest dimensions displaying a blue-lange serosal surface. Opening the specimen reveals a velvety, bile-stained mucosa with a gallbladder wall thickness of 0.1 cm. Calculi are not present, and no masses or lesions are noted grossly. Pocketed Spring Assembler sections, to include the proximal margin, are submitted in cassette A1. (CAA; 11/19/2019) QA/[facility] 11/19/2019 1208 Local . 02 Pathologist provided ICD-10: K81.1 . 02 CPT . 083385 Specimen Comment: A courtesy copy of this report has been sent to [phone], [phone] Specimen Comment: [phone] Specimen Comment: Report sent to / DR MURPHY Performed at: 01 [place] [id number] [address] [id number] MD Ry Bills MD Phone: [phone] Performed at: [address] [id number] [address] [address] PATHOLOGY RPT PROCEDURE Name: LAURIE TAVERAS Room #: DEP [facility] Pool#: [id number] Admission: 11/18/19 Date of : 62 Discharge: 11/18/19 Report #: [id number] Path Case #: [id number] MD Marleny Baptiste MD Phone: [phone]
== END 2019-11-18 12:25 | disposition home or self-care (01) ==
LOC: OR 08:47 → TBA 08:47 → OR 10:21
PROVIDERS: ATTEND Surgery
DX: R10.11 Right upper quadrant pain (principal); K81.1 Chronic cholecystitis; I10 Essential (primary) hypertension; I25.10 Atherosclerotic heart disease of native coronary artery without angina pectoris; E11.9 Type 2 diabetes mellitus without complications; E78.5 Hyperlipidemia, unspecified; E66.01 Morbid (severe) obesity due to excess calories; Z98.890 Other specified postprocedural states; Z79.899 Other long term (current) drug therapy; Z68.41 Body mass index [BMI] 40.0-44.9, adult
CPT/HCPCS: 50010; 50101; 50249; 50411; 50555; 51489; 52265; 52266; 53307; 53312; 53314; 55245; 56462; 56525; 56526; 62110; 62900; 70005